=== PATIENT | female | born 1995 | race Asian ===

== ENCOUNTER 2024-01-01 22:08 | Emergency (ER) | payer MEDICAID ==
[~2024-01-01] VITALS: Ht 170.2 cm; Wt 61.2 kg
[2024-01-01] MEDS ORDERED: TDAP [DIPH/PERTUSSIS/TET] 0.5 ML VIAL IM ONE (22:53)
[2024-01-01] MEDS: TDAP [DIPH/PERTUSSIS/TET] 0.5 ML VIAL IM ONE (23:01)
[2024-01-01 23:03] VITALS: BP 129/87; O2SAT 98
== END 2024-01-02 04:31 | disposition home or self-care (01) ==
LOC: ER 22:10
DX: S01.81XA Laceration without foreign body of other part of head, initial encounter (principal); W22.8XXA Striking against or struck by other objects, initial encounter; Y93.89 Activity, other specified; Y92.89 Other specified places as the place of occurrence of the external cause; Y99.8 Other external cause status
CPT/HCPCS: 90715